=== PATIENT | male | born 1950 | race Caucasian/White ===

== ENCOUNTER → 2016-11-07 | Outpatient (CLI) | payer BC | END | disposition home or self-care (01) | LOC: C.LAB 11:11 | DX: Z01.810 Encounter for preprocedural cardiovascular examination (principal) ==

== ENCOUNTER 2019-01-30 11:03 | Inpatient (IN) ==
--- NOTE | 2019-01-21 16:06 | PAT Medication Instructions ---
Medication Instructions Date of Service January 21, 2019 Home Medications ascorbic acid (vitamin C) [Vitamin C] 1 g PO DAILY aspirin [Aspir-81] 81 mg PO DAILY calcium carbonate [Calcium 500] 500 mg PO DAILY cholecalciferol (vitamin D3) [Vitamin D3] 1,000 unit PO DAILY glucosamine sulfate [Glucosamine] 500 mg PO DAILY multivitamin 1 cap PO DAILY naproxen sodium [Aleve] 220 mg PO BID PRN lactobacillus combination no.4 [Probiotic] 3,000 mmu cells PO DAILY tamsulosin 0.4 mg PO HS ASK your surgeon for instructions naproxen sodium [Aleve] 220 mg PO BID PRN ASK your prescriber and surgeon aspirin [Aspir-81] 81 mg PO DAILY STOP taking 2 weeks before surgery (or as soon as possible if surgery is within 2 weeks) glucosamine sulfate [Glucosamine] 500 mg PO DAILY DO NOT take the morning of surgery ascorbic acid (vitamin C) [Vitamin C] 1 g PO DAILY calcium carbonate [Calcium 500] 500 mg PO DAILY cholecalciferol (vitamin D3) [Vitamin D3] 1,000 unit PO DAILY multivitamin 1 cap PO DAILY lactobacillus combination no.4 [Probiotic] 3,000 mmu cells PO DAILY Take evening before surgery tamsulosin 0.4 mg PO HS Other Notes If you have any questions please call us at [phone] or [phone] or [phone] or [phone]
--- NOTE | 2019-01-22 11:42 | Anesthesiology Consultation ---
Date of Service January 22, 2019 Assessment & Plan (1) Encounter for pre-operative examination: ASA instructions: per surgeon/prescriber Chart Review Chart Review: Acceptable Risk for Surgery (pending surgeon-ordered PCP clearance done 01/10 (Dr. Odell; [facility])) and Patient seen in Pre Admission Testing Teaching & Discussion Pre-Anesthesia Teaching/Discussion Notes: Instructed NPO after midnight before surgery,except medications with 15 cc of water. Medication instructions provide d according to the PAT guidelines. History Surgery Operation Date: 01/30/19 14:00 Proposed Procedures p Right Total Shoulder Arthroplasty, Biceps Tenodesis - Anthony Chavira MD s Biceps Tenodesis - Anthony Chavira MD Height/Weight Height: 5 ft 7 in Weight: 84.3 kg Allergies Allergy/AdvReac Type Severity Reaction Status Date / Time Penicillins Allergy Unknown joint pain Verified 01/22/19 12:02 after PCN injection Medications Home Medications Medication Instructions Recorded Confirmed Last Taken ascorbic acid (vitamin C) [Vitamin 1 g PO DAILY 10/15/18 01/15/19 10/22/18 09:00 C] aspirin [Aspir-81] 81 mg PO DAILY 10/15/18 01/15/19 01/15/19 calcium carbonate [Calcium 500] 500 mg PO DAILY 10/15/18 01/15/19 10/22/18 09:00 cholecalciferol (vitamin D3) 1,000 unit PO DAILY 10/15/18 01/15/19 10/22/18 09:00 [Vitamin D3] glucosamine sulfate [Glucosamine] 500 mg PO DAILY 10/15/18 01/15/19 10/22/18 09:00 multivitamin 1 cap PO DAILY 10/15/18 01/15/19 10/22/18 09:00 naproxen sodium [Aleve] 220 mg PO BID PRN 10/15/18 01/15/19 10/16/18 lactobacillus combination no.4 3,000 mmu cells PO DAILY 01/15/19 01/15/19 Unknown [Probiotic] tamsulosin 0.4 mg PO HS 01/15/19 01/17/19 01/14/19 Past Medical History Medical History History of kidney stones Osteoarthritis Exercise / Class Metabolic Activity II 4-5 Yardwork/Stairs/Walk up hill (exercises regularly 2 hours/day, golfing) Past Family History Family History Father Family history of lung cancer Family history of liver cancer Past Surgical History Surgical History H/O hernia repair 10/23/18: right inguinal hernia repair: Grade view 1, MAC#3, ETT 7.5 at [facility] [place] History of arthroscopy knee, right History of colonoscopy History of repair of rotator cuff AND BICEP TENDON REPAIR - LEFT Past Anesthesia History No Family Hx of Anesthesia Complications and Other Urinary retention s/p right inguinal hernia repair (10/23/2018)- hess catheter placed in [facility] later same day and removed after one week. History of PONV No Hx of PONV and Hx of Motion Sickness Social History Smoking Status: Never smoker Do You Dip or Chew Tobacco: No Hx Alcohol Use: Yes Alcohol type: beer alcohol intake frequency: a few times a week Hx Substance Use: No substance use type: does not use Review of Systems Patient denies chest pain, shortness of breath, dyspnea on exertion, reflux, cough, wheezing, palpitations. Physical Exam Vital Signs VITALS BP 119/74 P 72 TEMP 98.2 SP02 94%RA RESP 16 PHYSICAL Full neck and c-spine range of motion. Full TMJ range of motion. TMD 2 finger breaths Mallampati Score 3 Dentition: missing side, permanent implant upper front Lungs: clear throughout to auscultation Cardiac: regular rate and rhythm, I/ systolic murmur (LUSB) Spine: normal Carotid arteries: negative bruit Extremities: no edema Testing Laboratory Results 01/22/19 12:10 PT 10.9 Seconds (9.0-12.0) 01/22/19 12:10 INR 1.1 (0.9-1.1) 01/22/19 12:10 APTT 27.8 Seconds (21.0-31.0) 01/22/19 12:10 Hemoglobin A1c 6.0 % (4.5-5.6) H 01/22/19 12:10 Urine Color Yellow 01/22/19 Unknown Urine Appearance Clear (Clear) 01/22/19 Unknown Urine pH 5.5 (4.5-7.5) 01/22/19 Unknown Ur Specific [place] 1.012 (1.000-1.030) 01/22/19 Unknown Urine Protein Negative (Negative) 01/22/19 Unknown Urine Glucose (UA) Negative (Negative) 01/22/19 Unknown Urine Ketones Negative (Negative) 01/22/19 Unknown Urine Nitrite Negative (Negative) 01/22/19 Unknown Ur Leukocyte Esterase Negative (Negative) 01/22/19 Unknown Blood Type A Positive 01/22/19 12:10 Antibody Screen NEGATIVE 01/22/19 12:10 01/10/19 SODIUM 142 POTASSIUM 4.4 CHLORIDE 102 CO2 31 BUN 25 CREATININE 0.96 GLUCOSE 111 Electrocardiogram Date: 01/10/19 SB at 59bpm. LAD. Minimal voltage criteria for LVH, may be normal variant. Chest X-Ray Date: 01/22/19 Findings: + NAD
[2019-01-22 12:32] LABS: Basophils # (auto) 0.02 K/uL (0-0.2); Basophils % (auto) 0.3 %; Eosinophils # (auto) 0.13 K/uL (0-0.5); Eosinophils % (auto) 1.7 %; Hematocrit (blood only) 40.4 % (42-52); Hemoglobin 13.8 g/dL (14.0-18.0); Immature Granulocytes # (auto) 0.01 K/uL (0.00-0.02); Immature Granulocytes % (auto) 0.1 %; Lymphocytes % (auto) 23.5 %; Mean Corpuscular Hgb Conc 34.2 g/dL (32-36); Mean Corpuscular Volume 93.1 fL (80-100); Mean Platelet Volume 11.2 fL (7.4-10.4); Monocytes # (auto) 0.45 K/uL (0.11-0.59); Monocytes % (auto) 5.9 %; Neutrophils # (auto) 5.25 K/uL (1.4-6.5); Neutrophils % (auto) 68.5 %; Platelet Count 195 K/uL (130-400); RDW Coefficient of Variation 13.2 % (11.5-14.5); RDW Standard Deviation 45.3 fL (36.4-46.3); Red Blood Count 4.34 M/uL (4.7-6.1); White Blood Count 7.66 K/uL (4.8-10.8)
--- NOTE | 2019-01-22 12:42 | XRay Report ---
XR chest Pre-admission PA/Lat CLINICAL HISTORY: PAT preoperative COMPARISON STUDY: No previous studies for comparison. FINDINGS: The bones soft tissues and hemidiaphragms are normal. The cardiomediastinal silhouette is n ormal. The lungs are clear. The pulmonary vasculature is normal. IMPRESSION: Negative chest. The above report was generated using voice recognition software. It may contain grammatical, syntax or spelling errors. Electronically signed by: Satish Hodges M.D. 01/22/2019 12:40 PM
[2019-01-22 12:45] LABS: INR 1.1 (0.9-1.1); Partial Thromboplastin Time 27.8 Seconds (21.0-31.0); Prothrombin Time 10.9 Seconds (9.0-12.0)
[2019-01-22 12:47] LABS: Estimated Average Glucose 126 mg/dl
[2019-01-22 14:53] LABS: Appearance Urine Clear (Clear); Bilirubin Urine Negative (Negative); Blood Urine Negative (Negative); Color Urine Yellow; Glucose Urine UA Negative (Negative); Ketones Urine Negative (Negative); Leukocyte Esterase Urine Negative (Negative); Nitrite Urine Negative (Negative); Protein Urine Negative (Negative); Specific Gravity Urine 1.012 (1.000-1.030); Urobilinogen Urine Negative (Negative); pH Urine 5.5 (4.5-7.5)
--- NOTE | 2019-01-30 00:44 | History and Physical Report ---
DATE OF ADMISSION: 01/30/2019 CHIEF COMPLAINT: Chronic right shoulder pain. HISTORY OF PRESENT ILLNESS: This is a 68-year-old male patient of Dr. Kee, complaining of chronic right shoulder pain, longstanding, now progressively getting worse. The patient has failed conservative treatment including injections, physical therapy and ierx-ebx-[id number] medications. The patient has been diagnosed with end-stage osteoarthritis per clinical and radiographic exams. The patient wished to proceed with a right total shoulder arthroplasty and biceps tenodesis. PAST MEDICAL HISTORY: Kidney stones and BPH. SOCIAL HISTORY: Nonsmoker, occasional drinker. PAST SURGICAL HISTORY: Left shoulder surgery, hernia surgery and right knee arthroscopy. FAMILY HISTORY: Noncontributory. REVIEW OF SYSTEMS: Chronic right shoulder pain. Otherwise, denies any shortness of breath, chest pain, nausea, vomiting or any other joint complaints. MEDICATIONS: 1. Multivitamin daily. 2. Vitamin C daily. 3. Aleve daily. 4. Aspirin 81 mg daily. 5. Glucosamine daily. 6. Probiotic daily. 7. Vitamin D2 daily. 8. Tamsulosin 0.4 mg daily. ALLERGIES: PENICILLIN. PHYSICAL EXAMINATION: GENERAL: Well-developed, well-nourished 68-year-old male in no acute distress. He is alert and oriented x3 and pleasant. HEENT: Normocephalic, atraumatic. Extraocular motions are intact. Pupils are equal and reactive to light. HEART: Regular rate and rhythm, no murmurs appreciated. LUNGS: Clear. ABDOMEN: Soft, nontender, bowel sounds present. EXTREMITIES: Right shoulder active range of motion of 0-90, passively 0-130. He has crepitation with range of motion. He has 4+/5 strength. NEUROLOGIC: Neurovascularly, he is intact in his right upper extremity. 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 He also has a history of kidney stones and benign prostatic hypertrophy. PLAN: The patient was advised of his diagnosis. Indications, risks, benefits, postop course have all been reviewed. The patient wished to proceed with a right total shoulder arthroplasty and biceps tenodesis. Necessary consent forms, preoperative testing and clearances will be obtained.
[~2019-01-30 11:03] MED LIST: ACETAMINOPHEN 500 MG TAB PO SCH; CeleBREX 200 MG CAP PO SCH; FAMOTIDINE 20 MG TAB PO SCH; GABAPENTIN 300 MG CAP PO SCH; LR 15ML/HR IV SCH; METOCLOPRAMIDE HCL 10 MG TABLET PO SCH; ROPIVACAINE 0.5% 5 MG/ML 30 ML VIAL ONE; VANCOMYCIN HCL 1,250 MG in SODIUM CHLORIDE 0.9% 250 ML IV SCH; dexAMETHasone 4 MG TAB PO SCH
--- NOTE | 2019-01-30 11:51 | History & Physical Bridge Note ---
Date of Service January 30, 2019 History & Physical Bridge Note I have examined the patient, reviewed the History & Physical and in the interval since the performance of the History & Physical I have noted the following changes of clinical significance: no changes noted
[2019-01-30] MEDS ORDERED: fentaNYL citrate 100 MCG/2 ML VIAL IV PRN (13:07)
[2019-01-30] MEDS ORDERED: ONDANSETRON INJ 2 MG/ML 2 ML VIAL IV PRN ×2 (13:07→18:08)
[2019-01-30] MEDS ORDERED: ePHEDrine sulfate 50 MG/ML AMP IV PRN (13:07)
[2019-01-30] MEDS ORDERED: HYDROmorphone INJ 1 MG/ML SYRINGE IV PRN (13:07)
[2019-01-30] MEDS ORDERED: ATROPINE SULFATE 0.1 MG/ML 10ML SYR IV PRN (13:07)
[2019-01-30] MEDS ORDERED: MIDAZOLAM HCL 1 MG/ML 2ML VIAL ONE (13:41)
[2019-01-30] MEDS ORDERED: fentaNYL citrate 100 MCG/2 ML VIAL ONE (13:44)
[2019-01-30] MEDS ORDERED: ONDANSETRON INJ 2 MG/ML 2 ML VIAL ONE (13:44)
[2019-01-30] MEDS ORDERED: ROCURONIUM BROMIDE 10 MG/ML 5 ML VIAL ONE (13:44)
[2019-01-30] MEDS ORDERED: LIDOCAINE HCL 2% 2 ML VIAL/AMP(20MG/ML) INFIL ONE (13:44)
[2019-01-30] MEDS ORDERED: PROPOFOL IV EMULSION 10 MG/ML 20 ML VIAL IV ONE (13:44)
[2019-01-30] MEDS ORDERED: BACITRACIN INJ 50,000 UNIT VIAL ONE (14:02)
[2019-01-30] MEDS ORDERED: EpINEphrine HCL INJ 1 MG/ML 1ML SYRINGE ONE ×2 (14:03→14:22)
[2019-01-30] MEDS ORDERED: GLYCOPYRROLATE 0.2 MG/ML VIAL ONE (14:52)
[2019-01-30] MEDS ORDERED: ePHEDrine sulfate 50 MG/ML SYR ONE (14:52)
[2019-01-30] MEDS ORDERED: DEXAMETHASONE SOD INJ 4 MG/ML VIAL ONE (14:52)
--- NOTE | 2019-01-30 16:53 | Post Operative Brief Note ---
Immediate Post Op Note v1 Date of Surgery January 30, 2019 Pre & Post Diagnosis Operation Date: 01/30/19 13:30 Pre-Op Diagnosis: Right shoulder degenerative joint disease, end-stage glenohumeral osteoarthritis, biceps tendinopathy Post-Op Diagnosis: Same Procedure Operation Date: 01/30/19 13:30 Actual Procedures p Right Total Shoulder Arthroplasty, Biceps Tenodesis(Right) - Anthony Chavira MD Surgeon Anthony Chavira MD Sales Service Promoter Satish NICOLAS Estimated Blood Loss 30 Findings Consistent with Post-Op Diagnosis Specimens Humeral head Drains Hemovac Drain Anesthesia Type General Regional Complications none Disposition Accompanied Patient To Recovery: No Disposition: Recovery Room Overlapping Procedure I was immediately available: during the entire case.
--- NOTE | 2019-01-30 17:12 | Operative Report ---
Post Operative Report Pre & Post Diagnosis Operation Date: 01/30/19 13:30 Pre-Op Diagnosis: Right shoulder degenerative joint disease, end-stage glenohumeral osteoarthritis, chronic biceps tenosynovitis tendinopathy. Post-Op Diagnosis: Same Procedure Operation Date: 01/30/19 13:30 Actual Procedures p Right Total Shoulder Arthroplasty, Biceps Tenodesis(Right) - Anthony Chavira MD Surgeon Anthony Chavira MD Coffee Roaster Helper Satish NICOLAS Estimated Blood Loss 30 Findings Consistent with Post-Op Diagnosis Specimens Humeral head Drains 2 Hemovac Anesthesia Type General Regional Complications none Disposition Accompanied Patient To Recovery: No Disposition: Recovery Room Indications 68-year-old male with chronic progressive osteoarthritis in his right shoulder failed conservative management. Radiographs demonstrate [id number] glenohumeral joint and MRI demonstrates is intact rotator cuff and biceps tendinopathy biceps tenosynovitis Description of Procedure The patient was taken to the operating room and anesthetized under a general and regional block anesthesia. A towel roll was placed under the medial border of the scapula of the right shoulder. The patient's head was placed on a foam headrest and protective eyewear was placed and the extremities were well padded. The arm was draped free in order to manipulate the shoulder as necessary. The shoulder exam demonstrated 140 degrees forward elevation 90 degrees abduction 40 degrees external rotation [id number] crepitation. The shoulder was sterilely prepped and draped in the usual sterile fashion. An anterior deltopectoral approach was performed. A longitudinal incision was made in the interval. The skin was incised sharply and subcutaneous tissues dissected down to the fascia. The cephalic vein was identified and retracted laterally with the deltoid. Any crossing veins were tied off with silk ties and divided. The clavipectoral fascia was divided at the lateral margin of the conjoined tendon and divided up to the level of the coracoacromial ligament which was preserved. The upper 1 cm of the pectoralis was released for inferior exposure. The biceps tendon findings demonstrated chronic tenosynovitis extending up into the bicipital groove and a fairly large falciform ligament. The rotator cuff tendon findings demonstrated intact rotator cuff no significant bursitis. The circumflex vessels were identified and tied off with silk ties and divided laterally. The fibers and subscapularis were split longitudinally at the level of the c ircumflex vessels down to the capsule and then reflected off the inferior capsule using a Kitner elevator. The axillary nerve was identified with a tug test and protected with a blunt Sujit retractor. The rotator interval was opened up and extended down to the glenoid. The biceps tendon was identified and tenodesed to the pectoralis tendon with [id number] #2 FiberWire sutures and the proximal biceps was resected. The subscapularis tendon was taken down with a trans-tendinous incision leaving a cuff of tissue for repair on the lesser tuberosity. The incision was carried down to the tendon and the capsule and a #1 Vicryl suture was placed into the free end of the subscapularis tendon. The capsule was subperiosteally dissected off the inferior neck of the humerus exposing the humeral osteophytes which demonstrated large inferior humeral osteophytes extending anterior to posterior. The osteophytes were excised with an artist chisel and a rongeur. The capsular release along the inferior neck of the humerus was completed. The humerus was then retracted posterior to the glenoid with a Fukuda retractor. The remainder of the biceps tendon and labrum was resected. The glenoid findings demonstrated posterior superior glenoid osteophyte anterior glenoid osteophyte completely worn glenoid with no cartilage on the articular surface. There was degenerative glenoid labral tissue and concentric wear with type A glenoid wear pattern. I did an anterior inferior and posterior inferior release with electrocautery on bone and a Ridley elevator with the axillary nerve continuing to be protected with the blunt Hohmann retractor inferiorly. When the releases were completed and the humeral head was exposed with some extension and external rotation and in anatomic head cut was m nannette using the oscillating saw. The humeral head findings demonstrated eburnated bone with the posterior superior head having a large defect with collapse of the bone into the subchondral bone. The humeral head was then retracted posterior to the glenoid with Hohmann retractors and Bankart retractor placed anteriorly. A central drill hole was made into the glenoid. The glenoid was sized for a s ize Tornier perform Cortiloc large 40 radius component. The Tornier ascend flex humerus with perform glenoid total shoulder arthroplasty system was used and the perform Cortiloc glenoid component was chosen. The glenoid was reamed and the central drill widened and the guide for the peg holes was placed in the peg holes were drilled and a trial component was placed with a tight fit. The trial was removed and the glenoid was irrigated with pulsatile lavage antibiotic solution and the drill holes were dried and packed with epinephrine-soaked tampons for hemostasis. The [place] G cement was vacuum mixed. The final component was cemented into position and held in position with pressure until the cement cured. Attention was taken to the humeral preparation. A centralizing awl was used in the canal followed by broaches up to a size 4. This had the appropriate fit and fill. A size 50 high offset millimeter humeral head was then used. It was rotated into appropriate position. A trial reduction was performed and the shoulder was stable. The trial was removed and the humerus and canal were irrigated with antibiotic solution with bacitracin. 3 drill holes were made into the hard bone in the bicipital groove lateral to the lesser tuberosity and 3 #5 FiberWire transosseous sutures were placed for repair of the subscapularis. After further irrigation of the canal and the final components were assembled. The final components were the for a standard ascend flex PTC humeral stem attached to the 50 x 19 high offset humeral head. The implant was then impacted into the humerus with a tight press-fit. The humerus was reduced to the glenoid and stability verified. The subscapularis was repaired with the #5 FiberWire sutures in a Noam-Marcial suture technique and lateral row fixation with [id number] #2 FiberWire in the soft tissue. The rotator interval was closed and maximal external rotation. The pectoralis was then closed with [id number] #2 FiberWire suture. The FiberWire sutures were passed through the biceps as well to reinforce the tenodesis. 2 Hemovac drains were placed. The deltopectoral interval was closed with [id number] #1 Vicryl sutures. The subcutaneous tissues were closed with interrupted 2-0 Vicryl and the skin was closed with mercedes and a sterile dressing was applied. The patient tolerated the procedure well. Satish NICOLAS my physician blood bank assistant, assisted in soft tissue retraction instrument management suture management and assisted in the subcutaneous and skin closure and will participate in the postoperative care the patient. I attest to the content of the Intraoperative Record and any orders documented therein. Any exceptions are noted below.
--- NOTE | 2019-01-30 17:37 | XRay Report ---
RIGHT SHOULDER 2 VIEWS CLINICAL HISTORY: Postoperative examination. FINDINGS: 2 portable views of the right shoulder are obtained. No prior studies are available for [facility] at the time of dictation. The skeletal structures are osteopenic. A right shoulder arthroplas ty is in near anatomic alignment. No acute fracture is seen. The acromioclavicular joint appears main tained. There are expected postoperative changes overlying the right shoulder including skin clips, a surgical drain, subcutaneous gas, and soft tissue swelling. Degenerative change and scoliosis are no shannon in the thoracic spine. Atelectasis is seen at the right lung base. IMPRESSION: Expected postoperative findings status post right shoulder arthroplasty. No acute fractur e is identified. Electronically signed by: Kavin Wild M.D. 01/30/2019 5:36 PM
--- NOTE | 2019-01-30 17:59 | Anesthesiology Progress Note ---
Date of Service January 30, 2019 Anesthesia Post Procedure Vital Signs Vital Signs: Temp Pulse Pulse Resp BP Pulse Ox 01/30/19 17:35 66 15 128/78 96 01/30/19 17:25 36.4 C L 69 14 118/83 95 01/30/19 17:15 36.5 C 66 20 129/74 93 01/30/19 17:05 36.5 C 74 20 132/73 92 01/30/19 16:57 36.5 C 76 20 122/73 95 01/30/19 11:28 36.6 C 69 18 147/80 H 94 Transfer of Care Handoff Completed per policy Notes Mental Status: alert / awake / arousable and participated in evaluation Patient Amnestic to Procedure: Yes Nausea / Vomiting: adequately controlled Pain: adequately controlled Airway Patency, RR, SpO2: stable & adequate BP & HR: stable & adequate Hydration State: stable & adequate Anesthetic Complications: no major complications apparent and Pt Satisfied with anesthetic care
[2019-01-30] MEDS ORDERED: SODIUM CHLORIDE 0.9% 1000ML 1,000 ML IV SCH (18:08)
[2019-01-30] MEDS ORDERED: MAGNESIUM HYDROXIDE SUSP 30 ML UDC PO PRN (18:08)
[2019-01-30] MEDS ORDERED: NALOXONE HCL 0.4 MG/1 ML VIAL/CARP IV PRN (18:08)
[2019-01-30] MEDS ORDERED: BISACODYL 10 MG SUPP PR PRN (18:08)
[2019-01-30] MEDS ORDERED: VANCOMYCIN CONSULT ACTIVE PRN (18:08)
--- NOTE | 2019-01-30 18:57 | Hospitalist Consultation ---
Date of Consultation January 30, 2019 Assessment & Plan (1) Status post total shoulder arthroplasty: Status post right TSA on 01/30 -Postoperative management as per orthopedic surgery -Pain control, bowel regimen as per orthopedics -Follow CBC in the morning (2) BPH w urinary obs/LUTS: With a history of urinary retention and now here with postvoid residual of almost 600 -Straight cath for PVR greater than 350 mL's -Continue BladderScan every shift Hopefully this will improve after anesthesia effect wears off, advised to reduce opioids as much as possible -Consult his urologist whom he was supposed to see tomorrow anyway and follow-up for previous urinary retention -Continue Flomax -Follow renal function in the morning (3) Prediabetes: Recent hemoglobin A1c was 6.0% -Does not take medication for this as an outpatient -No need for Accu-Cheks or sliding scale insulin here -Continue dietary control as an outpatient follow-up with PCP (4) DVT prophylaxis: SCDs Disposition-other than urinary retention issues which will be addressed with a urology consultation, patient is quite medically stable at this time. Hospitalist service will sign off at this time. Please feel free to reconsult for new or acute issues. History of Present Illness Reason for Consultation: Post-op medical management Requesting Physician: Dr. Chavira Attending Physician: Anthony Chavira MD History of Present Illness Pt is a 68 yo male with a h/o BPH, OA, kidney stones, and prediabetes who is here for a right TSA. He reports he is doing very well other than the fact that he is having some trouble with voiding. He was able to get some urine out but feels like he did not completely void. He has had issues with urinary retention after his inguinal hernia repair that required Cunningham catheterization x1 week. He is concerned that this might happen again. He does follow with Dr. Dueñas of urology for his enlarged prostate. He denies nausea or vomiting, denies chest pain or shortness of breath, denies abdominal pain. Allergies Allergy/AdvReac Type Severity Reaction Status Date / Time Penicillins Allergy Unknown joint pain Verified 01/30/19 11:29 after PCN injection Home Medications Home Medications Medication Instructions Recorded Confirmed Type ascorbic acid (vitamin C) [Vitamin 1 g PO DAILY 10/15/18 01/30/19 History C] aspirin [Aspir-81] 81 mg PO DAILY 10/15/18 01/30/19 History calcium carbonate [Calcium 500] 500 mg PO DAILY 10/15/18 01/30/19 History cholecalciferol (vitamin D3) 1,000 unit PO DAILY 10/15/18 01/30/19 History [Vitamin D3] glucosamine sulfate [Glucosamine] 500 mg PO DAILY 10/15/18 01/30/19 History multivitamin 1 cap PO DAILY 10/15/18 01/30/19 History naproxen sodium [Aleve] 220 mg PO BID PRN 10/15/18 01/30/19 History lactobacillus combination no.4 3,000 mmu cells PO DAILY 01/15/19 01/30/19 History [Probiotic] tamsulosin 0.4 mg PO HS 01/15/19 01/30/19 History Patient History Medical History BPH w urinary obs/LUTS History of kidney stones Osteoarthritis Prediabetes Surgical History History of colonoscopy H/O hernia repair 10/23/18: right inguinal hernia repair: Grade view 1, MAC#3, ETT 7.5 at [facility] [place] History of arthroscopy knee, right History of repair of rotator cuff AND BICEP TENDON REPAIR - LEFT Family History Father Family history of lung cancer Family history of liver cancer Social History Preferred Language: Polish Communication Ability: Effective Visual Impairment: No Limitations Hearing Ability: Normal Community Midwife Required: No Beliefs That Will Affect Care: None Current Living Situation: Spouse Other Information That Helps Us Care for You: No Feels Safe at Home: Yes Smoking Status: Never smoker Do You Dip or Chew Tobacco: No Second Hand Exposure: No Hx Alcohol Use: Yes Alcohol type: other Hx Substance Use: No Review of Systems Review of Systems: All systems reviewed & are unremarkable except as noted in HPI & below Physical Exam Constitutional: WD/WN, vitals as above Eyes: PERRL, conjunctivae normal, anicteric sclerae ENMT: external ear and nose normal, oropharynx normal Neck: trachea midline, no thyromegaly Respiratory: normal respiratory effort, lungs clear to auscultation Cardiovascular: RRR, no murmur, no edema Gastrointestinal (Abdomen): Inspection/Auscultation: abdomen normal to inspection and normal bowel sounds; abdomen not distended Percussion/Palpation: + abdomen tender (Minimally tender in the suprapubic region with full bladder palpated) and abdomen soft; no guarding and abdomen not rigid Musculoskeletal: Extremities: + extremities abnormal to inspection (Right upper extremity in shoulder sling with ice pack and Jovanny wrap in place over the right shoulder), no cyanosis and no clubbing Skin: no rashes, warm and dry Neurologic: moves all extremities and awake; no focal motor deficits Psychiatric: A+Ox3, euthymic affect Results & Data Vital Signs (Past 12 Hours) Vital Signs Temp Pulse Pulse Resp BP Pulse Ox 01/30/19 18:26 36.4 C L 57 L 16 121/74 95 01/30/19 18:00 36.4 C L 62 18 135/74 95 01/30/19 17:35 66 15 128/78 96 01/30/19 17:25 36.4 C L 69 14 118/83 95 01/30/19 17:15 36.5 C 66 20 129/74 93 01/30/19 17:05 36.5 C 74 20 132/73 92 01/30/19 16:57 36.5 C 76 20 122/73 95 01/30/19 11:28 36.6 C 69 18 147/80 H 94 PG Care Time/CCT Total # of Minutes Spent Total Time Spent with Patient: Total time spent is greater than 50% in coordination of care (as documented) at patient's floor/unit and/or counseling patient:
[2019-01-30] MEDS: SENNA 8.6 MG TAB PO SCH (21:26)
[2019-01-30] MEDS: TAMSULOSIN HCL 0.4 MG CAP PO SCH (21:26)
[2019-01-30] MEDS: ACETAMINOPHEN 500 MG TAB PO SCH (21:26)
[2019-01-30] MEDS: DOCUSATE SODIUM 100 MG CAP PO SCH (21:26)
[2019-01-30] MEDS ORDERED: VANCOMYCIN HCL 1,250 MG in SODIUM CHLORIDE 0.9% 250 ML IV SCH (23:30)
[2019-01-31] MEDS: OXYCODONE HCL IR 5 MG TAB (IMMEDIATE RELEASE) PO PRN ×6 (01:57→22:43)
[2019-01-31] MEDS: ACETAMINOPHEN 500 MG TAB PO SCH ×3 (05:46→21:42)
--- NOTE | 2019-01-31 08:12 | Orthopedic Progress Note ---
Date of Service January 31, 2019 Assessment & Plan (1) Shoulder joint replacement status: Status post right total shoulder replacement expected progress. Urinary retention issues due to prostate issues. Observe bladder function ultrasound bladder as needed straight cath as needed monitor situation and another 24 hours and have physical therapy start in hospital per protocol. Subjective Patient had to be straight cath but feels like he can urinate better today. Pain manageable. Physical Exam Physical Exam: Residual numbness in thumb status post nerve block otherwise d istal neurological exam intact. Dressing dry and intact. Results & Data Vital Signs (Past 12 Hours) Vital Signs Temp Pulse Pulse Resp BP Pulse Ox 01/31/19 07:57 36.9 C 50 L 18 107/64 92 01/31/19 03:31 36.8 C 53 L 14 117/68 90 01/30/19 23:34 36.5 C 50 L 16 109/64 90 01/30/19 21:52 36.4 C L 52 L 18 112/67 93 01/30/19 21:37 18 94 01/30/19 20:15 36.7 C 60 18 108/66 94
[2019-01-31 08:14] LABS: Basophils # (auto) 0.01 K/uL (0-0.2); Basophils % (auto) 0.1 %; Eosinophils # (auto) 0.01 K/uL (0-0.5); Eosinophils % (auto) 0.1 %; Hematocrit (blood only) 37.4 % (42-52); Hemoglobin 12.6 g/dL (14.0-18.0); Immature Granulocytes # (auto) 0.06 K/uL (0.00-0.02); Immature Granulocytes % (auto) 0.3 %; Lymphocytes # (auto) 1.46 K/uL (1.2-3.4); Lymphocytes % (auto) 8.4 %; Mean Corpuscular Hgb Conc 33.7 g/dL (32-36); Mean Corpuscular Volume 94.2 fL (80-100); Mean Platelet Volume 11.1 fL (7.4-10.4); Monocytes # (auto) 1.45 K/uL (0.11-0.59); Monocytes % (auto) 8.3 %; Neutrophils # (auto) 14.41 K/uL (1.4-6.5); Neutrophils % (auto) 82.8 %; Platelet Count 191 K/uL (130-400); RDW Coefficient of Variation 13.6 % (11.5-14.5); RDW Standard Deviation 46.8 fL (36.4-46.3); Red Blood Count 3.97 M/uL (4.7-6.1)
[2019-01-31] MEDS: MULTIVITAMIN TAB PO SCH (08:29)
[2019-01-31] MEDS: DOCUSATE SODIUM 100 MG CAP PO SCH ×2 (08:29→20:04)
[2019-01-31] MEDS: CALCIUM CARBONATE 1250MG TAB PO SCH (08:29)
[2019-01-31] MEDS: ASPIRIN 81 MG ECTAB PO SCH (08:29)
[2019-01-31] MEDS: LACTOBACILLUS ACIDOPHILUS (FLORANEX) TAB PO SCH (08:29)
[2019-01-31] MEDS: ASCORBIC ACID 500 MG TAB PO SCH (08:30)
[2019-01-31] MEDS: CHOLECALCIFEROL 1,000 UNITS TAB PO SCH (08:30)
[2019-01-31 08:53] LABS: BUN Creatinine Ratio 18.4 (10-20); Creatinine Clr Calc Pharmacy 78.8 ml/min; Est GFR (African American) 100.4; Est GFR (Non-African American) 86.6; Potassium 4.2 mmol/L (3.5-5.1)
[2019-01-31] MEDS ORDERED: MULTIVITAMIN TAB PO SCH (09:00)
[2019-01-31] MEDS ORDERED: ASCORBIC ACID 500 MG TAB PO SCH (09:00)
[2019-01-31] MEDS: HYDROmorphone INJ 0.5 MG/0.5 ML SYR IV PRN ×2 (11:58→20:04)
--- NOTE | 2019-01-31 13:02 | Urology Consultation ---
Date of Consultation January 31, 2019 Assessment & Plan (1) Incomplete bladder emptyinyo M POD #1 s/p Right Shoulder Arthroplasty by Dr. Chavira with resolving post operative acute urinary retention. Required straight cath x1 yesterday, now spontaneously voiding today. Pt feels things are continuing to improve. Will continue bladder scans qshift to document progress, straight cath if >500cc. No symptoms of UTI. Indwelling catheter is not indicated at this time. Plan to continue tamsulosin. Discussed strategies to maximize spontaneous voiding, emptying. I.e. sitting to viod, use of tamsulosin BID for a few weeks if he feels it is beneficial. Warned against side effects. Discussed common side effect of retrograde ejaculation, somewhat bothersome to patient. He wishes to transition to alternative due to this, will send Rx for him to convert to alfuzosin in a few weeks time. Pt has existing followup with Dr. Dueñas in April, okay to keep this appt. To call our office if having difficulty prior to this. Pt verbalizes good understanding. Thank you for allowing us to participate in the acute care of Mr. Poole. Please reconsult with additional questions, concerns or changes in patient status. History of Present Illness Reason for Consultation: AUR, BPH Requesting Physician: Dr. Chavira Attending Physician: Anthony Chavira MD History of Present Illness 68yo M POD #1 s/p Right Shoulder Arthroplasty by Dr. Chavira with post operative acute urinary retention. at bedside today. Last evening patient required straight cath for large volume. Since then, his spontaneous voiding has continued to improve. Still voiding frequent, small volumes. Most recent bladder scan for ~300cc. Pt feels much better, feels things are beginning to resolve. Denies suprapubic pain, urgency/frequency, or dysuria. Of note, he has experienced similar episode s/p R inguinal hernia surgery in October of this year. At that time he did require indwelling catheter for a few days, initiated on tamsulosin at that time. Evaluated by Dr. Dueñas. In the interim, pt had discontinued tamsulosin on his own due to bothersome side effect of retrograde ejaculation. He did restart tamsulosin 2 weeks prior to this procedure. No other issues or concerns today. Appears to have pain well controlled post operatively. Denies n/v/f/c. Allergies Allergy/AdvReac Type Severity Reaction Status Date / Time Penicillins Allergy Unknown joint pain Verified 01/30/19 11:29 after PCN injection Home Medications Home Medications Medication Instructions Recorded Confirmed Type ascorbic acid (vitamin C) [Vitamin 1 g PO DAILY 10/15/18 01/30/19 History C] aspirin [Aspir-81] 81 mg PO DAILY 10/15/18 01/30/19 History calcium carbonate [Calcium 500] 500 mg PO DAILY 10/15/18 01/30/19 History cholecalciferol (vitamin D3) 1,000 unit PO DAILY 10/15/18 01/30/19 History [Vitamin D3] glucosamine sulfate [Glucosamine] 500 mg PO DAILY 10/15/18 01/30/19 History multivitamin 1 cap PO DAILY 10/15/18 01/30/19 History naproxen sodium [Aleve] 220 mg PO BID PRN 10/15/18 01/30/19 History lactobacillus combination no.4 3,000 mmu cells PO DAILY 01/15/19 01/30/19 History [Probiotic] tamsulosin 0.4 mg PO HS 01/15/19 01/30/19 History Patient History Medical History BPH w urinary obs/LUTS History of kidney stones Osteoarthritis Prediabetes Surgical History History of colonoscopy H/O hernia repair 10/23/18: right inguinal hernia repair: Grade view 1, MAC#3, ETT 7.5 at [facility] [place] History of arthroscopy knee, right History of repair of rotator cuff AND BICEP TENDON REPAIR - LEFT Family History Father Family history of lung cancer Family history of liver cancer Social History Preferred Language: Frisian Communication Ability: Effective Visual Impairment: No Limitations Hearing Ability: Normal Hair Or Beauty Salon Manager Required: No Beliefs That Will Affect Care: None marital status: Current Living Situation: Spouse Other Information That Helps Us Care for You: No Feels Safe at Home: Yes Smoking Status: Never smoker Do You Dip or Chew Tobacco: No Second Hand Exposure: No Hx Alcohol Use: Yes Alcohol type: other Hx Substance Use: No Review of Systems Review of Systems: Constitutional: Denies fever, chills, sweats, malaise Eyes: Denies problem reported ENMT: Denies dizziness Resp: Denies cough, Denies shortness of breath CV: Denies JVD GI: Denies nausea/vomiting : Denies suprapubic or flank pain, dysuria, urgency, frequency, hematuria MS: Denies swelling, stiffness Integ: Denies rash, erythema Neuro: Denies falls, weakness Psych: Denies behavior change Endo: Denies polyphagia, polydipsia Heme: Denies easy bleeding Physical Exam Constitutional: no acute distress and not ill appearing Eyes: no nystagmus ENMT: Ears: no hearing impairment Neck: trachea midline Respiratory: no respiratory distress and no cough Cardiovascular: Vessels: no JVD Chest (Breasts): Chest: normal inspection of chest Gastrointestinal (Abdomen): Inspection/Auscultation: abdomen not distended and no abdominal edema Percussion/Palpation: abdomen soft; abdomen nontender Musculoskeletal: Head/Neck/Chest: normocephalic and head atraumatic Skin: no rashes, warm and dry Neurologic: awake; not confused and not obtunded Psychiatric: Orientation: alert and oriented x 3 Eye Contact: good eye contact Affect: no depressed affect Genitourinary: bladder normal to inspection; no CVA tenderness Lymphatic: no lymphadenopathy and no lymphedema Results & Data Vital Signs (Past 12 Hours) Vital Signs Temp Pulse Resp BP Pulse Ox 01/31/19 07:57 36.9 C 50 L 18 107/64 92 01/31/19 03:31 36.8 C 53 L 14 117/68 90 Laboratory Results Laboratory Results - last 48 hr 01/31/19 01/31/19 08:01 08:01 WBC 17.40 H RBC 3.97 L Hgb 12.6 L Hct 37.4 L MCV 94.2 MCH 31.7 MCHC 33.7 RDW Std Deviation 46.8 H RDW Coeff of Rylee 13.6 Plt Count 191 MPV 11.1 H Immature Gran % (Auto) 0.3 Neut % (Auto) 82.8 Lymph % (Auto) 8.4 [place] % (Auto) 8.3 Eos % (Auto) 0.1 Baso % (Auto) 0.1 Immature Gran # (Auto) 0.06 H Neut # (Auto) 14.41 H Lymph # (Auto) 1.46 [place] # (Auto) 1.45 H Eos # (Auto) 0.01 Baso # (Auto) 0.01 Sodium 139 Potassium 4.2 Chloride 105 Carbon Dioxide 28 Anion Gap 6.0 BUN 16 Creatinine 0.89 Est Cr Clr Drug Dosing 78.8 Est GFR ( Amer) 100.4 Est GFR (Non-Af Amer) 86.6 BUN/Creatinine Ratio 18.4 Glucose 102 H Calcium 9.0
[2019-01-31] MEDS: SENNA 8.6 MG TAB PO SCH (20:04)
[2019-01-31] MEDS: TAMSULOSIN HCL 0.4 MG CAP PO SCH (20:04)
[2019-02-01] MEDS: OXYCODONE HCL IR 5 MG TAB (IMMEDIATE RELEASE) PO PRN ×3 (02:32→10:58)
[2019-02-01] MEDS: ACETAMINOPHEN 500 MG TAB PO SCH (05:33)
[2019-02-01 06:18] LABS: Basophils # (auto) 0.02 K/uL (0-0.2); Basophils % (auto) 0.2 %; Eosinophils # (auto) 0.27 K/uL (0-0.5); Eosinophils % (auto) 2.2 %; Hematocrit (blood only) 36.7 % (42-52); Hemoglobin 12.2 g/dL (14.0-18.0); Immature Granulocytes # (auto) 0.03 K/uL (0.00-0.02); Immature Granulocytes % (auto) 0.2 %; Lymphocytes # (auto) 2.25 K/uL (1.2-3.4); Lymphocytes % (auto) 18.4 %; Mean Corpuscular Hgb Conc 33.2 g/dL (32-36); Mean Corpuscular Volume 94.6 fL (80-100); Mean Platelet Volume 11.2 fL (7.4-10.4); Monocytes # (auto) 1.75 K/uL (0.11-0.59); Monocytes % (auto) 14.3 %; Neutrophils # (auto) 7.89 K/uL (1.4-6.5); Neutrophils % (auto) 64.7 %; Platelet Count 175 K/uL (130-400); RDW Standard Deviation 48.1 fL (36.4-46.3); Red Blood Count 3.88 M/uL (4.7-6.1); White Blood Count 12.21 K/uL (4.8-10.8)
[2019-02-01 06:46] LABS: Calcium 8.6 mg/dl (8.5-10.1); Creatinine Clr Calc Pharmacy 68.1 ml/min; Est GFR (African American) 84.9; Est GFR (Non-African American) 73.3
[2019-02-01] MEDS: CALCIUM CARBONATE 1250MG TAB PO SCH (07:05)
[2019-02-01] MEDS: ASPIRIN 81 MG ECTAB PO SCH (07:05)
[2019-02-01] MEDS: ASCORBIC ACID 500 MG TAB PO SCH (07:05)
[2019-02-01] MEDS: CHOLECALCIFEROL 1,000 UNITS TAB PO SCH (07:05)
[2019-02-01] MEDS: DOCUSATE SODIUM 100 MG CAP PO SCH (07:07)
[2019-02-01] MEDS: LACTOBACILLUS ACIDOPHILUS (FLORANEX) TAB PO SCH (07:07)
[2019-02-01] MEDS: MULTIVITAMIN TAB PO SCH (07:07)
--- NOTE | 2019-02-01 07:15 | Orthopedic Progress Note ---
Date of Service February 01, 2019 Assessment & Plan (1) Status post total shoulder arthroplasty: POD #2, Right TSA, Biceps tenodesis PT/OT D/C planning home today w OPPT Urinary retention- resolved will f/u as OPPT Appreciate medicine and urology input. Subjective POD #2, Doing well, denies SOB, CP, N/V. Pain controlled well. Voiding normally with no retention. Physical Exam Physical Exam: Right shoulder dressings c/d/i, no drainage, fingers mobile, sling in tact, A&Ox3. Results & Data Vital Signs (Past 12 Hours) Vital Signs Temp Pulse Resp BP Pulse Ox 02/01/19 07:10 36.9 C 65 14 125/73 91 01/31/19 23:11 37.1 C 68 16 137/72 91
--- NOTE | 2019-02-13 04:19 | Discharge Summary ---
HISTORY OF PRESENT ILLNESS: This is a 68-year-old male patient of Dr. Chavira's, complaining of chronic right shoulder pain, longstanding, now progressively getting worse. He failed conservative treatment and elected to proceed with a right total shoulder arthroplasty. PAST MEDICAL HISTORY: Kidney stones and BPH. POSTOPERATIVE COURSE: The patient underwent a right total shoulder arthroplasty and biceps tenodesis on 01/30/2019. He was followed closely with medical consultation, physical therapy and pain control. The patient did have a history of urinary incontinence after surgery. He was straight cathed one time postoperatively day #1. Urology consult saw him, but at that point in time, he had been voiding on his own, so symptoms resolved on their own. There was no further intervention needed. The patient will follow up with his urologist as an outpatient. PHYSICAL EXAMINATION: On discharge, right shoulder incision was clean, dry and intact. Miki were intact. Skin edges were approximated well. There was no redness or drainage. Fingers were mobile. Sling was intact. Neurologically and neurovascularly, he was intact in his right upper extremity. DIAGNOSES: Status post right total shoulder arthroplasty and biceps tenodesis. Brief urinary incontinence resolved before discharge. He also has a history of kidney stones and BPH. PLAN: The patient was discharged home with outpatient physical therapy. He will continue his preadmission medications with the addition of pain medications. He will follow up with Dr. Chavira scheduled as an outpatient.
== END 2019-02-01 11:30 | disposition home or self-care (01) | DRG 483 ==
LOC: ASU 11:03 → 3E 17:02